=== PATIENT | female | born 1950 | race Caucasian/White ===

== ENCOUNTER 2016-08-29 23:06 | Observation (INO) | payer BC ==
--- NOTE | ~2016-08-29 | HP ---
History And Physical [id number] [place]. [address] NAME: TAMMIE LOCO : 50 STATUS : ADM Daniel PAT#: [id number] AGE: 66 ADM/REG DATE : 08/29/16 MR#: [id number] REPORT SERV DATE: 08/30/16 DICTATED BY: KYRA HUTCHISON DATE: 08/30/16 REPORT STATUS : Draft TRANSCRIBED BY: MODL DATE: 08/30/16 DATE OF ADMISSION: 08/29/2016 CHIEF COMPLAINT: Chest pressure. HISTORY OF PRESENT ILLNESS: This is a 66-year-old white female, obese, with no known history of CAD, states that on 08/29/2016 around 1100 hours while getting up prior to going to work, she did not feel herself. She is employed at [employer] in the [employer], and while at work around 1900 hours, she did not feel well and developed some degree of chest pressure. She was taken to the clinic. Her systolic blood pressure was reportedly 200. She indicates midsternal chest pressure that did not radiate elsewhere with some associated shortness of breath and nausea. Denies diaphoresis, dizziness, or belching. She states she was also nauseous after she received a Percocet here for headache. The patient describes DUTTON such as taking stairs. Rates her chest pain a 4/10 at its most intense. At the time of interview in the [facility], she is pain-free. The episode of chest pressure persisted all day. She describes it as "someone pushing on my chest." The patient denies any personal history of myocardial infarction, stroke, DVT, or pulmonary embolus. The patient denies any recent fever or chills, no palpitations, no syncopal episodes. Denies PND or orthopnea. The patient is unable to report her current home blood sugars. She states she has run out of strips and feels her meter has malfunctioned in the past. She reports her most recent hemoglobin A1c as possibly 7. Records indicate 03/02/2016 hemoglobin A1c of 7.5. PAST MEDICAL HISTORY: 1. AODM, diet controlled. 2. Obesity. 3. Former tobacco abuse. 4. Denies hypertension or dyslipidemia. 5. Positive family history for early CAD. PAST SURGICAL HISTORY: 1. Melanoma removed from her back, 01/2016. 2. Hysterectomy. 3. Appendectomy. SOCIAL HISTORY: She is with two children. She is employed at [employer] Does not have a structured exercise routine. Quit smoking 15 years ago. Denies alcohol or illicits. FAMILY HISTORY: Father of a heart attack at 54. Sister with a heart attack at 72, alive with subsequent stroke. REVIEW OF SYSTEMS: A 14-point review of systems performed, significant for HPI including snores per report with History And Physical [address] [id number] NAME: TAMMIE LOCO : 50 STATUS : ADM Daniel PAT#: [id number] AGE: 66 ADM/REG DATE : 08/29/16 MR#: [id number] REPORT SERV DATE: 08/30/16 DICTATED BY: KYRA HUTCHISON DATE: 08/30/16 REPORT STATUS : Draft TRANSCRIBED BY: IAIN DATE: 08/30/16 no formal sleep study. Otherwise, a complete review of systems was obtained and negative. ALLERGIES: ALLERGY TO TETANUS VACCINE, ARM RED AND SWELLING. HOME MEDICINES: ProAir p.r.n., cinnamon oil, Visine, and [place]-3. PHYSICAL EXAMINATION: VITAL SIGNS: Bilateral blood pressures on arrival, right 167/70 and left 169/74, this morning 138/63; pulse 98; respirations 20; and temperature 97.8. O2 saturation 95% on room air. Height 5 feet 2 inches. Weight 181 pounds. BMI 33. GENERAL: Cooperative, in no apparent distress. HEENT: Pupils 2 mm, sclera nonicteric. Nares patent. Moist mucous membranes. No xanthelasma. NECK: Trachea midline, no thyromegaly. No JVD. No bruits. LYMPH: No cervical lymphadenopathy. No supraclavicular lymphadenopathy. RESPIRATORY: Unlabored respirations. Breath sounds clear bilaterally to posterior auscultation. No wheezes or rhonchi. CARDIOVASCULAR: Regular rate. No murmur, rub or gallop appreciated. EXTREMITIES: Without edema. Pulses 2+ bilaterally. Right leg visibly smaller than left. 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 ABDOMEN: Obese. SKIN: Warm, dry extremities. No pallor, or cyanosis. PSYCHIATRIC: Appropriate affect. Alert, oriented x3. LABORATORY DATA: Troponin less than 0.02 twice. Potassium 3.9, BUN 20, creatinine 1.19, glucose 171, and magnesium 2.2. WBC 12.0, hemoglobin 15.3, hematocrit 44.2, and platelet count 227,000. EKG: Sinus rhythm (initially sinus tachycardia). Stress echo in 2013: Brian stage 1, no ischemia with recommendation for nuclear stress test in the future. ASSESSMENT AND PLAN: 1. Chest pain in a patient with risk factors of diabetes, family history, former tobacco. The patient has been observed in the CPOU overnight to rule out myocardial infarction with two sets of cardiac markers negative. EKG appears stable. The patient will be held n.p.o. for MPI today. Home if negative study, to follow up with her PCP in one to two weeks. If anything suggestive of ischemia, Cardiology referral will be initiated. 2. Dyspnea on exertion. Check an echocardiogram. 3. Adult-onset diabetes mellitus, no strips with reported meter malfunction. We will ask family educator to assist in providing some supplies at discharge. 4. Obesity. Diet and exercise choices discussed including an 1800-calorie ADA diet. LUIZ/IAIN Kyra History And Physical [address] [address] NAME: TAMMIE LOCOYCE : 50 STATUS : ADM Daniel PAT#: [id number] AGE: 66 ADM/REG DATE : 08/29/16 MR#: [id number] REPORT SERV DATE: 08/30/16 DICTATED BY: KYRA HUTCHISON DATE: 08/30/16 REPORT STATUS : Draft TRANSCRIBED BY: MODL DATE: 08/30/16 ROBERT Hutchison, MATERIAL DAMAGE ADJUSTER-BC / [id number] CC: ROBERT Benitez, MATERIAL DAMAGE ADJUSTER-BC Tarah Vizcarra M.D.
[2016-08-29 21:20] LABS: BASOPHILS 0.3 %; BASOPHILS ABSOLUTE 0.04 10/3/uL (0.0-0.16); EOSINOPHILS 3.1 %; EOSINOPHILS ABSOLUTE 0.37 10/3/uL (0.0-0.53); HEMATOCRIT 44.2 % (36.0-48.0); HEMOGLOBIN 15.3 g/dL (12.0-16.0); IMMATURE GRANULOCYTES 0.2 %; IMMATURE GRANULOCYTES ABSOLUTE 0.03 10/3/uL (0.0-0.11); LYMPHOCYTES 34.8 %; LYMPHOCYTES ABSOLUTE 4.18 10/3/uL (0.67-4.30); MEAN CORPUS HGB CONC 34.6 g/dL (32.0-36.0); MEAN CORPUSCULAR HEMOGLOB 30.5 pg (26.0-34.0); MEAN PLATELET VOLUME 11.3 fL (9.2-13.0); MONOCYTES 6.5 %; MONOCYTES ABSOLUTE 0.78 10/3/uL (0.21-1.20); NEUTROPHILS 55.1 %; NEUTROPHILS ABSOLUTE 6.62 10/3/uL (2.02-8.40); PLATELET COUNT 227 10/3/uL (150-400); RBC DISTRIBUTION WIDTH 12.6 % (12.0-16.0); RED CELL COUNT 5.02 10/6/uL (4.0-5.6)
[2016-08-29 21:21] LABS: MANUAL DIFF NO %
[2016-08-29 21:26] LABS: PROTIME (NOT ORD) 12.7 SEC (12.0-14.5)
[2016-08-29 21:27] LABS: PARTIAL THROMBO TIME 28.9 SEC (22.5-37.2)
[2016-08-29 21:37] LABS: BUN (BLOOD UREA NITROGEN) 20 MG/DL (6-23); CALCIUM, SERUM 9.6 MG/DL (8.5-10.4); CHEST PAIN PROFILE TAT 0 Hrs 21 Mins; CHLORIDE, SERUM 104 MMOL/L (96-112); CO2 (CARBON DIOXIDE) 28 MMOL/L (24-34); CREATININE 1.19 MG/DL (0.55-1.02); GFR AFRICAN AMERICAN 55 ML/MIN (>=60); GFR NON AFRICAN AMERICAN 48 ML/MIN (>=60); GLUCOSE, SERUM 171 MG/DL (60-99); POTASSIUM, SERUM 3.9 MMOL/L (3.5-5.3); SODIUM, SERUM 140 MMOL/L (135-148); TROPONIN I <0.02 NG/ML (<0.05)
[~2016-08-29 23:06] MED LIST: ALKA-SELT+ OR; CINNAMONPO PO; OMEGA-3 PO; PROAIR HFA INH; VISINE TEARS15 ML OPH
[2016-08-30] MEDS ORDERED: ASAB PO (16:06)
[2016-08-30] MEDS ORDERED: PRIN2.5 PO (16:12)
[2016-08-30] MEDS ORDERED: COREG3 PO (16:13)
[2016-08-30] MEDS ORDERED: ZOCOR10 PO (16:13)
[2016-08-30] MEDS ORDERED: NTG150 SL (16:15)
== END 2016-08-30 17:13 | disposition home or self-care (01) ==
LOC: ER 23:06 → CDU1 23:59 → CDU2 08-30 01:59
PROVIDERS: Emergency Medicine
DX: R07.9 Chest pain, unspecified (principal); R06.00 Dyspnea, unspecified; E11.8 Type 2 diabetes mellitus with unspecified complications; E66.9 Obesity, unspecified; Z88.7 Allergy status to serum and vaccine; Z79.899 Other long term (current) drug therapy; Z90.710 Acquired absence of both cervix and uterus; Z90.49 Acquired absence of other specified parts of digestive tract
CPT/HCPCS: 71020; 78452; 80048; 83735; 84484; 85025; 85610; 85730; 93005; 93017; 93306; 96374; 99285; A9270-GY; A9502; G0378; J2405